=== PATIENT | female | born 1995 | race Caucasian/White ===

== ENCOUNTER → 2019-03-27 11:20 | Outpatient (CLI) | payer BC, SELFPAY ==
[2019-03-27 11:36] LABS: Basophils % 0.1 % (0.1-2.0); Eosinophils % 0.3 % (0.1-12.0); Hematocrit 45.9 % (37.0-47.0); Hemoglobin 14.6 g/dL (12.2-16.2); Lymphocytes # 2.3 K/mm3 (0.7-4.5); Lymphocytes % 31.5 % (10-50); Mean Corpuscular HGB Conc 31.7 g/dL (31.8-35.4); Mean Corpuscular Hemoglobin 29.8 pg (27.0-31.2); Mean Platelet Volume 11.2 fl (7.4-10.4); Monocytes # 0.2 K/mm3 (0.1-1.0); Monocytes % 3.1 % (1.7-9.3); Neutrophils # 4.7 K/mm3 (1.8-7.8); Platelet Count 131 K/mm3 (142-424); Red Blood Count 4.88 M/mm3 (4.20-5.40); Red Cell Distribution Width 13.4 % (11.5-17.5); White Blood Count 7.3 K/mm3 (4.8-10.8)
[2019-03-27 14:24] LABS: Alanine Aminotransferase 36 U/L (12-78); Albumin/Globulin Ratio 1.4 (1.1-1.8); Alkaline Phosphatase 87 U/L (46-116); Aspartate Amino Transferase 18 U/L (15-37); Bilirubin,Total 0.5 mg/dL (0.2-1.0); Blood Urea Nitrogen 12 mg/dL (7-18); Calcium 8.9 mg/dL (8.5-10.1); Carbon Dioxide 25 mmol/L (21.0-32.0); Chloride 107 mmol/L (98-107); Creatinine,Serum 0.79 mg/dL (0.55-1.02); Estimated Glomerular Filt Rate 89 ml/min (>60); Free Thyroxine Index 2.7 ug/dL (5.93-13.13); GFR (African American) 107 ML/MIN (>60); Globulin 2.9 gm/dl (1.3-3.2); Glucose 95 mg/dL (74-106); Sodium 142 mmol/L (136-145); T4 (Thyroxine) 8.3 ug/dl (4.7-13.3); Thyroid Stimulating Hormone 1.48 uIU/ml (0.358-3.740); Total Protein,Serum 6.9 gm/dL (6.4-8.2); Triiodothryronine (T3) Uptake 33 % (31-39)
[2019-03-28 07:06] LABS: DHEA-Sulfate 282.4 ug/dL (84.8-378.0)
[2019-03-28 17:10] LABS: FSH 5.4 mIU/mL (.); LH 11.3 mIU/mL (.); Triiodothyronine (T3) Free 2.7 pg/mL (2.0-4.4)
[2019-03-31 13:53] LABS: Testosterone,Free 4.4 pg/mL (0.0-4.2)
== END ==
PROVIDERS: Visit Provider Nurse Practitioner Obstetrics & Gynecology
DX: E28.2 Polycystic ovarian syndrome (principal); R53.82 Chronic fatigue, unspecified; Z01.419 Encounter for gynecological examination (general) (routine) without abnormal findings
CPT/HCPCS: 36415; 80053; 82626; 83001; 83002; 84402; 84436; 84443; 84479; 84481; 85025

== ENCOUNTER → 2019-04-26 12:47 | Outpatient (CLI) | payer BC, SELFPAY ==
--- NOTE | 2019-04-26 12:58 | US_ITS ---
US transvaginal HISTORY: ITS.REASON: US T/V- Polycystic Ovaries ORDERING PHYSICIAN: Alcon Edwards MD PATIENT AGE: 24 years Comparison: None FINDINGS: The uterus is 7 x 3 x 4 cm with a combined endometrial thickness of 5 mm. There is an intrauterine device present within the endometrial canal. The right ovary is 3.7 x 1.9 x 2.7 cm with a volume of 9.8 mL's. There are small ovarian follicles present. The left ovary is 4 x 3 x 2.9 cm with a volume of 19 mL's. There are at least 9 small follicles of left ovary noted. No cul-de-sac fluid. No dominant ovarian mass. IMPRESSION: 1. IUD in proper position. 2. Left ovary has a polycystic appearance.
== END ==
PROVIDERS: PCP Internal Medicine; Visit Provider Nurse Practitioner Obstetrics & Gynecology
DX: E28.2 Polycystic ovarian syndrome (principal)
CPT/HCPCS: 76830

== ENCOUNTER → 2020-04-14 09:50 | Outpatient (CLI) | payer OTHER, SELFPAY ==
[2020-04-14 10:28] LABS: Basophils % 0.4 % (0.1-2.0); Eosinophils % 0.2 % (0.1-12.0); Hematocrit 44.3 % (37.0-47.0); Hemoglobin 15.6 g/dL (12.2-16.2); Lymphocytes # 2.4 K/mm3 (0.7-4.5); Lymphocytes % 31.4 % (10-50); Mean Corpuscular HGB Conc 35.2 g/dL (31.8-35.4); Mean Corpuscular Hemoglobin 32.3 pg (27.0-31.2); Mean Platelet Volume 10.6 fl (7.4-10.4); Monocytes # 0.2 K/mm3 (0.1-1.0); Monocytes % 2.7 % (1.7-9.3); Neutrophils # 5.1 K/mm3 (1.8-7.8); Neutrophils % 65.3 % (37.0-80.0); Platelet Count 161 K/mm3 (142-424); Red Blood Count 4.81 M/mm3 (4.20-5.40); Red Cell Distribution Width 13.3 % (11.5-17.5); White Blood Count 7.8 K/mm3 (4.8-10.8)
[2020-04-14 11:00] LABS: Blood Urea Nitrogen 11 mg/dl (7-17); Calcium 9.9 mg/dl (8.4-10.2); Carbon Dioxide 21 mmol/L (22.0-30.0); Chloride 105 mmol/L (98-107); Estimated Glomerular Filt Rate 87 ml/min (>60); GFR (African American) 105 ML/MIN (>60); Glucose 110 mg/dl (74-100); Sodium 139 mmol/L (136-145)
[2020-04-14 11:35] LABS: HCG Qualitative, Serum Negative (Negative)
[2020-04-14 14:29] LABS: Coronavirus 19 IgG Antibody Negative (Negative); Coronavirus 19 IgM Antibody Negative (Negative)
== END ==
PROVIDERS: Visit Provider Nurse Practitioner Obstetrics & Gynecology
DX: Z01.818 Encounter for other preprocedural examination (principal)
CPT/HCPCS: 36415; 80048; 84703; 85025; 86328

== ENCOUNTER 2020-04-17 06:02 | Day surgery (SDC) | payer OTHER, SELFPAY ==
[2020-04-13 13:19] VITALS: BMI 39.8
[2020-04-17] VITALS (11 sets, daily range): BP systolic 119–158; BP diastolic 58–85; PULSE 86–120; RESP 16–18; TEMP 36.1–36.6; O2SAT 99–100
--- NOTE | 2020-04-17 06:57 | P.PN_ITS ---
[facility] Anesthesia Checklist - Structural Data Admitted From: Home Planned Operative Procedure/s: labioplasty Consent for Planned Operative Procedure(s) Verified: Yes - Additional verifications Anesthesia Reactions: No Hx Blood Transfusions: No Blood Transfusion Reaction: No - Airway Assessment C-Spine Mobility Assessed: Yes TMJ Mobility Assessed: Yes Dentition: Good Dentition - Neurological Assessment Level of Consciousness: Awake, Alert, Appropriate - Anesthesia Plan Anesthesia Risk discussed: Yes Anesthesia Plan: Verified Anesthesia Type: General [facility] History I have reviewed the patient's past medical history: Yes Medical History: Reports:: Anxiety, Depression Denies:: Cancer, Diabetes Mellitus Type 1, Diabetes Mellitus Type 2, Hyperlipidemia, Hypertension, Internal Pacemaker, Migraine, MRSA, Seizures *Have you ever received a pneumonia vaccine?: No *Have you received a flu vaccine this season?: No Other Medical History: Reports: Hypothyroidism, Other. Denies: Blood Transfusion Reaction Anesthesia experience/problems:: none Laterality Cases: Bilateral: Tonsillectomy Other Surgeries: Yes: No Previous Surgery, Other. No: Pacemaker Amputation: No Fractures: No - *Social History Last grade of school completed: Advanced degree Smoking Status: Never smoker Alcohol Intake: current Alcohol Intake Frequency:: a few times a month Substance Use Type: denies use *Occupational Status:: student Housing: house Household Members: family *Travel in the last 8 weeks: None - Psychiatric History Pschychiatric History:: Reports:: Anxiety, Depression Family Hx:: Coronary Artery Disease, Asthma, Diabetes, Cancer
--- NOTE | 2020-04-17 08:10 | P.OP_ITS ---
Date of procedure: 04/17/20 Pre-op Diagnosis:: Labial hypertrophy Post-op Diagnosis:: Labial hypertrophy Procedure performed:: Left labioplasty Surgeon:: Alcon Edwards MD FINANCIAL ASSISTANT:: Vincenzo Lawrence Anesthesia: GETA, LMA Estimated blood loss (mL): 100 Clinical Note:: She is a 25-year-old 0 para 0 lady who complains of hypertrophy of the left labia with pain with walking as well as intercourse. After having discussed the risks and benefits she elected to have a left labioplasty Operative findings:: She had hypertrophy of the left labia. The right labia appeared normal. As result of that we elected to leave the right labia alone. Operative note:: She was taken the operating room where LMA anesthesia was found to be adequate. She was prepped and draped in normal sterile fashion in the lithotomy position. I grasped the left labia and using Metzenbaum scissors I remove the redundant ti ssue. I then cauterized the base of the incision and closed the incision using interrupted 3-0 Vicryl Rapide suture. I then injected 20 cc of 0.25% ropivacaine subcutaneously. I then applied lidocaine ointment to the incision. A Ray-Rolly was then used to hold this in place. She tolerated procedure well and was taken to recovery room in excellent condition. All sponge, instrument and needle counts were correct. The estimated blood loss was less than 100 cc. Condition: stable Disposition: PACU Complications:: None
--- NOTE | 2020-04-17 08:24 | HMH.ANESI ---
[facility] Anesthesia Record Part I Intake, IV Amount: 700 Estimated blood loss (mL): 100 Urine output (mL): 25 Blood Pressure: 146/69 SaO2: 99 Pulse Rate: 120 Respiratory Rate: 16 Temperature: 97.7 F Patient is:: Drowsy, Stable Stable to PACU at:: 08:20
--- NOTE | 2020-04-17 10:17 | P.PN_ITS ---
[facility] Anesthesia Record Part II Discharge Time: 08:50 Destination: Surgical Day Care (OP Surgery) PACU nurse assessment reviewed?: Yes Patient Condition:: Good Anesthesia Complications:: None Swallowing reflex intact?: Yes Cyanosis?: No Blood Pressure: 132/79 Pulse Rate: 94 Temperature: 97.9 F Mental Status: Alert & Oriented Pain level:: 0 Nausea and/or vomitting:: None Intake, IV Amount: 0
== END 2020-04-17 09:25 | disposition home or self-care (01) ==
LOC: OR 06:04
PROVIDERS: PCP Internal Medicine; Visit Provider Nurse Practitioner Obstetrics & Gynecology
PROC: (CPT 56620; principal; 2020-04-17 07:30)
DX: N90.60 Unspecified hypertrophy of vulva (principal); R10.2 Pelvic and perineal pain; M19.90 Unspecified osteoarthritis, unspecified site; F41.9 Anxiety disorder, unspecified; F32.9 Major depressive disorder, single episode, unspecified; E03.9 Hypothyroidism, unspecified; Z79.899 Other long term (current) drug therapy; Z83.3 Family history of diabetes mellitus; Z82.49 Family history of ischemic heart disease and other diseases of the circulatory system; Z82.5 Family history of asthma and other chronic lower respiratory diseases; Z80.9 Family history of malignant neoplasm, unspecified
CPT/HCPCS: 56620; 96374; J2405

== ENCOUNTER → 2021-01-29 11:26 | Outpatient (CLI) | payer OTHER, SELFPAY ==
[2021-01-29 12:03] LABS: Basophils % 0.3 % (0.1-2.0); Eosinophils % 0.2 % (0.1-12.0); Hematocrit 44.7 % (37.0-47.0); Hemoglobin 14.8 g/dL (12.2-16.2); Lymphocytes # 2.7 K/mm3 (0.7-4.5); Lymphocytes % 40.8 % (10-50); Mean Corpuscular Hemoglobin 30.4 pg (27.0-31.2); Mean Corpuscular Volume 92.1 fl (81-99); Monocytes # 0.2 K/mm3 (0.1-1.0); Monocytes % 3.3 % (1.7-9.3); Neutrophils # 3.6 K/mm3 (1.8-7.8); Neutrophils % 55.3 % (37.0-80.0); Platelet Count 138 K/mm3 (142-424); Red Blood Count 4.85 M/mm3 (4.20-5.40); Red Cell Distribution Width 13.5 % (11.5-17.5); White Blood Count 6.5 K/mm3 (4.8-10.8)
[2021-01-29 12:46] LABS: Chloride 107 mmol/L (98-107); Potassium 4.3 mmoL/L (3.5-5.1); Sodium 138 mmol/L (136-145)
[2021-01-29 12:48] LABS: Blood Urea Nitrogen 8 mg/dl (7-17); Estimated Glomerular Filt Rate 101 ml/min (>60); GFR (African American) 122 ML/MIN (>60)
[2021-01-29 12:49] LABS: Alanine Aminotransferase 44 U/L (12-78); Albumin Level 4.5 g/dl (3.5-5.0); Alkaline Phosphatase 85 U/L (38-126); Anion Gap 10.3 mEq/L (5-15); Aspartate Amino Transferase 34 U/L (14-36); Bilirubin,Total 0.7 mg/dl (0.2-1.3); Calcium 9.4 mg/dl (8.4-10.2); Carbon Dioxide 25 mmol/L (22.0-30.0); Cholesterol 237 mg/dl (140-200); Globulin 2.3 g/dL (1.3-3.2); Glucose 96 mg/dl (74-100); Total Protein,Serum 6.8 g/dl (6.3-8.2); Triglycerides 180 mg/dl (30-150); VLDL Cholesterol 36 mg/dL (0-40)
[2021-01-29 12:50] LABS: HDL Cholesterol 47 mg/dl (40-60)
[2021-01-29 13:01] LABS: Direct LDL Cholesterol 154.08 mg/dL (100-129)
[2021-01-29 13:20] LABS: Thyroid Stimulating Hormone 1.85 uIU/mL (0.465-4.68)
== END ==
PROVIDERS: Visit Provider Internal Medicine
DX: E03.9 Hypothyroidism, unspecified (principal); E78.5 Hyperlipidemia, unspecified; F41.9 Anxiety disorder, unspecified
CPT/HCPCS: 36415; 80053; 80061; 84443; 85025

== ENCOUNTER → 2021-08-15 12:30 | Outpatient (CLI) | payer BC, OTHER, SELFPAY ==
[2021-08-15 13:28] LABS: Chloride 107 mmol/L (98-107); Potassium 4.6 mmoL/L (3.5-5.1); Sodium 142 mmol/L (136-145)
[2021-08-15 13:31] LABS: Alanine Aminotransferase 19 U/L (12-78); Albumin Level 4.6 g/dl (3.5-5.0); Albumin/Globulin Ratio 1.9 (1.1-1.8); Alkaline Phosphatase 84 U/L (38-126); Anion Gap 13.6 mEq/L (5-15); Aspartate Amino Transferase 27 U/L (14-36); Bilirubin,Total 0.5 mg/dl (0.2-1.3); Blood Urea Nitrogen 13 mg/dl (7-17); Calcium 9.8 mg/dl (8.4-10.2); Carbon Dioxide 26 mmol/L (22.0-30.0); Cholesterol 243 mg/dl (140-200); Estimated Glomerular Filt Rate 86 ml/min (>60); GFR (African American) 104 ML/MIN (>60); Globulin 2.4 g/dL (1.3-3.2); Glucose 87 mg/dl (74-100); Triglycerides 135 mg/dl (30-150); VLDL Cholesterol 27 mg/dL (0-40)
[2021-08-15 13:32] LABS: Chol/HDL Ratio 6.2 (1-3.5); HDL Cholesterol 39 mg/dl (40-60)
[2021-08-15 13:42] LABS: Direct LDL Cholesterol 179.22 mg/dL (100-129)
[2021-08-15 15:44] LABS: Thyroid Stimulating Hormone 1.26 uIU/mL (0.465-4.68)
== END ==
PROVIDERS: Visit Provider Internal Medicine
DX: E03.9 Hypothyroidism, unspecified (principal); E78.5 Hyperlipidemia, unspecified; F33.0 Major depressive disorder, recurrent, mild; F41.9 Anxiety disorder, unspecified
CPT/HCPCS: 80053; 80061; 84443

== ENCOUNTER 2021-12-10 17:23 | Emergency (ER) | payer BC, SELFPAY ==
[2021-12-10 18:08] VITALS: BP 155/95; PULSE 117; RESP 17; TEMP 37.5; O2SAT 100; BMI 42.4
[2021-12-10 18:09] LABS: UTC Strep Screen (Rapid) Negative (Negative)
--- NOTE | 2021-12-10 18:24 | HMH.EDUTC ---
[facility] [place] Clinical Impression: Acute bronchitis Qualifiers: Bronchitis organism: unspecified organism Qualified Code(s): J20.9 - Acute bronchitis, unspecified Disposition: Home, Self-Care Condition on Discharge: Good Instructions: Acute Bronchitis, DI for Acute Bronchitis Additional Instructions: Drink plenty of fluids. Take tylenol or ibuprofen for pain or fever. Take the medications as directed. Follow up with your regular doctor. GO TO THE ER FOR ANY WORSENING SYMPTOMS Prescriptions: Benzonatate [Benzonatate 100mg cap] 100 mg PO TIDP PRN #30 cap PRN Reason: Cough [facility] Status[id number] methylPREDNISolone [Medrol] 4 mg PO DIRECTED 6 Days #21 packet Transmission Status: [id number] guaiFENesin [Mucinex 600mg tablet] 1 - 2 tab PO BIDP PRN #30 tab PRN Reason: Congestion Transmission Status: [email or web address] Azithromycin [Z-Berlin 250mg Tab*] 250 mg PO UD DOSE PK #6 tab Transmission Status: Received by [facility] Referrals: Fito Neal [Primary Care Provider] - Forms: Work/School Release Time of Disposition: 18:52 Medical Decision Making - Medical Records Medical records reviewed: No: I reviewed the patient's medical records. - Jonn Inquiry Pt receiving controlled substance: No Vital Signs: 12/10/21 18:08 12/10/21 19:19 Temperature 99.5 F 98.9 F Temperature Source Oral Oral Pulse Rate 91 H Pulse Rate [Left Radial] 117 H Respiratory Rate 17 16 Blood Pressure 142/74 H Blood Pressure [Right Arm] 155/95 H Blood Pressure Mean [Right Arm] 115 02 Sat by Pulse Oximetry 100 Oxygen Delivery Method Room Air Room Air - Lab Data Lab results reviewed: Yes: I reviewed the patient's lab results. Lab Results 12/10/21 18:03: Strep Scn [facility] Negative 12/10/21 18:27: Influenza Type A Ag Negative, Influenza Type B Ag Negative Orders (Tests/Meds): ORDERS Category Date Time Status Strep Screen Confirmation Stat Micro 12/10/21 18:03 Received Medical Decision Narrative: She refused a covid-19 test. [facility] [place] - General Stated complaint: ankur,runny nose,sore throat,cough Time Seen by Provider: 12/10/21 18:24 Mode of Arrival: Ambulatory Source of Information: Patient Limitations: No Limitations Description of Symptoms (Recalled from Triage Doc. by RN): [facility] c/o sore throat, cough, congestion and nasal drainage x1 week HEENT Symptoms (Recalled from RN notes): Yes Resp Symptoms (Recalled from RN notes): Yes Skin Symptoms (Recalled from RN notes): No MS Symptoms (Recalled from RN notes): No Functional Status (Recalled from RN notes): na - History of Present Illness Provider Complaint: She states that for the past 10 days she has had a productive cough with yellowish sputum. She denies any fever or chills. 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 - Related Data Home Medications Medication Instructions Recorded Confirmed levothyroxine 50 mcg tablet 50 mcg PO DAILY 90 Days #90 04/13/18 05/01/20 venlafaxine 150 mg 150 mg PO DAILY 90 Days #90 04/13/18 05/01/20 capsule,extended release 24 hr levonorgestrel 20 mcg/24 hours (7 20 mcg INTRAUTERI DAILY 05/11/18 05/01/20 yrs) 52 mg intrauterine device spironolactone 100 mg tablet 100 mg PO DAILY 11/08/19 05/01/20 Previous Rx's Medication Instructions Recorded Oxycodone HCl/Acetaminophen 1 tab PO Q4-6H PRN #20 tab 04/17/20 [Percocet 5/325mg tablet] phentermine 37.5 mg tablet 37.5 mg PO DAILY #30 tab 05/01/20 Azithromycin [Z-Berlin 250mg Tab*] 250 mg PO UD DOSE PK #6 tab 12/10/21 Benzonatate [Benzonatate 100mg 100 mg PO TIDP PRN #30 cap 12/10/21 cap] guaiFENesin [Mucinex 600mg tablet] 1 - 2 tab PO BIDP PRN #30 tab 12/10/21 methylPREDNISolone [Medrol] 4 mg PO DIRECTED 6 Days #21 12/10/21 packet Allergies Allergy/AdvReac Type Severity Reaction Status Date / Time N
[2021-12-10 18:48] LABS: UTC Influenza A Antigen Negative (Negative); UTC Influenza B Antigen Negative (Negative)
[2021-12-10 19:19] VITALS: BP 142/74; PULSE 91; RESP 16; TEMP 37.2; O2SAT 100
== END 2021-12-10 19:20 | disposition home or self-care (01) ==
PROVIDERS: Emergency Provider Nurse Practitioner Family; PCP Internal Medicine
DX: J20.9 Acute bronchitis, unspecified (principal); J02.9 Acute pharyngitis, unspecified; F41.8 Other specified anxiety disorders; E03.9 Hypothyroidism, unspecified; Z79.899 Other long term (current) drug therapy
CPT/HCPCS: 87804; 87880; 99213; G0463

== ENCOUNTER → 2022-02-12 10:25 | Outpatient (CLI) | payer BC, SELFPAY ==
[2022-02-12 12:22] LABS: Thyroid Stimulating Hormone 1.02 uIU/mL (0.465-4.68)
== END ==
PROVIDERS: Visit Provider Internal Medicine
DX: E03.9 Hypothyroidism, unspecified (principal)
CPT/HCPCS: 36415; 84443

== ENCOUNTER 2023-02-08 12:08 | Emergency (ER) | payer BC, SELFPAY ==
[2023-02-08 12:31] VITALS: BP 166/97; PULSE 105; RESP 18; TEMP 37; O2SAT 100; BMI 48.6
[2023-02-08 12:40] LABS: UTC Strep Screen (Rapid) Negative (Negative)
--- NOTE | 2023-02-08 12:47 | EXP.UTC ---
Discharge Plan Disposition Patient Disposition: Home, Self-Care Condition: Good Prescriptions Prescriptions: New amoxicillin 875 mg tablet 875 mg PO Q12H 10 Days Qty: 20 0RF fexofenadine-pseudoephedrine [Wilma-D 24 Hour] 180-240 mg tablet extended release 24 hr 1 tab PO DAILY Qty: 30 0RF No Action levothyroxine 50 mcg tablet 50 mcg PO DAILY 90 Days Qty: 90 venlafaxine 150 mg capsule,extended release 24hr 150 mg PO DAILY 90 Days Qty: 90 Referrals Follow up/Referrals: Fito Neal MD [Primary Care Provider] - See instructions Clinical Impressions Clinical Impression: Acute suppur right otitis media w/o spontan rupture tympanic membrane Qualifiers: Recurrence: not specified as recurrent Qualified Code(s): H66.001 - Acute suppurative otitis media without spontaneous rupture of ear drum, right ear Acute maxillary sinusitis, unspecified Qualifiers: Recurrence: not specified as recurrent Qualified Code(s): J01.00 - Acute maxillary sinusitis, unspecified Instructions Patient Instructions: DI for Sinusitis, Sinus Headache Discharge ED Provider: Alayna Mitchell [facility] General Stated complaint: Cough,Congestion,sore throat Mode of Arrival: Ambulatory Source of Information: Patient Limitations: No Limitations Time Seen by Provider: 02/08/23 12:40 Description of Symptoms (Recalled from Triage Doc. by RN): pt states she has had sinus pressure, runny nose, sore throat, and headache since HEENT Symptoms (Recalled from RN notes): Yes Resp Symptoms (Recalled from RN notes): Yes Skin Symptoms (Recalled from RN notes): No MS Symptoms (Recalled from RN notes): No Functional Status (Recalled from RN notes): wnl History of Present Illness Provider Complaint: Pt states that she started having sinus congestion/drainage that is yellow-green, sore throat, bilateral ear pain, and facial pressure since . She states that she has taken OTC DayQuil for her symptoms, but this has not helped. Related Data Home Medications Medication Instructions Recorded Confirmed levothyroxine 50 mcg tablet 50 mcg PO DAILY hypothyroidism 90 04/13/18 04/19/22 days ##90 venlafaxine 150 mg 150 mg PO DAILY Anxiety 90 days 04/13/18 04/19/22 capsule,extended release 24 hr ##90 Previous Rx's Medication Instructions Recorded amoxicillin 875 mg tablet 875 mg PO Q12H 10 days #20 tabs 02/08/23 fexofenadine-pseudoephedrine ER 1 tab PO DAILY #30 tabs 02/08/23 180 mg-240 mg tablet,ext.release 24 hr (Wilma-D 24 Hour) Allergies Allergy/AdvReac Type Severity Reaction Status Date / Time No Known Allergies Allergy Verified 02/08/23 12:34 Worker's Comp Is this a Worker's Comp case?: No Is this an [facility] Worker's Comp?: No Is this a [facility] Worker's Comp?: No [facility] Disclaimer: The information contained in this section may have been updated after the patient was seen, as this information can be updated by other users. Social History Smoking Status: Never smoker alcohol intake: current substance use type: denies use current occupational status: student Travel in the last 8 weeks: None household members: family housing: house current occupational exposures/hazards: No caffeine: Yes ROS Obtained: Yes All systems reviewed & no additional complaints except as documented Constitutional Constitutional: Reports system reviewed and no additional complaints, except as documented, Reports fever(s), Reports headache(s) and Reports malaise Eyes Eyes: Reports system reviewed and no additional complaints, except as documented ENT Ears, Nose, Mouth, and Throat: Reports system reviewed and no additional complaints, except as documented, Reports headache(s), Reports nasal congestion, Reports nasal discharge, Reports odynophagia, Reports sinus pain, Reports sinus pressure and Reports sore throat Cardiovascular Cardiovascular: Reports system reviewed and no additional complaints, excep
[2023-02-08 12:57] VITALS: BP 152/83; PULSE 103; RESP 18; TEMP 37; O2SAT 100
== END 2023-02-08 12:57 | disposition home or self-care (01) ==
PROVIDERS: Emergency Provider Nurse Practitioner Family; PCP Internal Medicine
DX: J01.00 Acute maxillary sinusitis, unspecified (principal); H66.001 Acute suppurative otitis media without spontaneous rupture of ear drum, right ear
CPT/HCPCS: 87880; 99212; 99214; G0463

== ENCOUNTER 2023-05-16 15:40 | Emergency (ER) | payer BC, SELFPAY ==
[2023-05-16 15:40] VITALS: BP 155/91; PULSE 79; RESP 16; TEMP 36.7; O2SAT 100; BMI 48.4
--- NOTE | 2023-05-16 16:10 | EXP.UTC ---
Discharge Plan Disposition Patient Disposition: Home, Self-Care Condition: Good Prescriptions Prescriptions: New amoxicillin [amoxicillin] 875 mg tablet 875 mg PO Q12H Qty: 20 0RF tquntcvwobzjzwg-nqrdsvmxi-SH [Bromfed DM] 2-30-10 mg/5 mL Syrup 5 ml PO Q6H PRN (Reason: Cough) Qty: 240 0RF ciprofloxacin-dexamethasone 0.3-0.1 % Drops,Suspension 2 drp Ear-Right BID 7 Days Qty: 1 0RF No Action levothyroxine 50 mcg tablet 50 mcg PO DAILY 90 Days Qty: 90 venlafaxine 150 mg capsule,extended release 24hr 150 mg PO DAILY 90 Days Qty: 90 amoxicillin 875 mg tablet 875 mg PO Q12H 10 Days Qty: 20 0RF fexofenadine-pseudoephedrine [Wilma-D 24 Hour] 180-240 mg tablet extended release 24 hr 1 tab PO DAILY Qty: 30 0RF Referrals Follow up/Referrals: Fito Neal MD [Primary Care Provider] - See instructions Activity Restrictions/Add. Instructions Additional Instructions/Restrictions: Drink plenty of fluids. Take tylenol or ibuprofen for pain or fever. Take the medications as directed. Follow up with your regular doctor. GO TO THE ER FOR ANY WORSENING SYMPTOMS Make sure you follow up with your primary care physician to have your ear rechecked in a few days to make sure it is healing,. Clinical Impressions Clinical Impression: Otitis media, Perforated eardrum Stand Alone Forms Stand Alone Forms: Work/School Release Instructions Patient Instructions: How to Instill Ear Drops, Middle Ear Infection Discharge ED Provider: Martin Hoyt [facility] General Stated complaint: right ear pain Time Seen by Provider: 05/16/23 16:09 History of Present Illness Provider Complaint: She states that she has had bilateral ear pain for the past 3 days. She began having a tannish discharge from her right ear yesterday. Related Data Home Medications Medication Instructions Recorded Confirmed levothyroxine 50 mcg tablet 50 mcg PO DAILY hypothyroidism 90 04/13/18 04/19/22 days ##90 venlafaxine 150 mg 150 mg PO DAILY Anxiety 90 days 04/13/18 04/19/22 capsule,extended release 24 hr ##90 Previous Rx's Medication Instructions Recorded amoxicillin 875 mg tablet 875 mg PO Q12H 10 days #20 tabs 02/08/23 fexofenadine-pseudoephedrine ER 1 tab PO DAILY #30 tabs 02/08/23 180 mg-240 mg tablet,ext.release 24 hr (Wilma-D 24 Hour) amoxicillin 875 mg tablet 875 mg PO Q12H #20 tabs 05/16/23 scttshqaskrtidl-mgfcrjlckmpgakf-NL 5 ml PO Q6H PRN Cough #240 mL 05/16/23 2 mg-30 mg-10 mg/5 mL oral syrup (Bromfed DM) ciprofloxacin 0.3 %-dexamethasone 2 drp Ear-Right BID 7 days #1 ea 05/16/23 0.1 % ear drops,suspension Allergies Allergy/AdvReac Type Severity Reaction Status Date / Time No Known Allergies Allergy Verified 02/08/23 12:34 [facility] Disclaimer: The information contained in this section may have been updated after the patient was seen, as this information can be updated by other users. Social History Smoking Status: Never smoker alcohol intake: current substance use type: denies use current occupational status: student Travel in the last 8 weeks: None household members: family housing: house current occupational exposures/hazards: No caffeine: Yes ROS Obtained: Yes All systems reviewed & no additional complaints except as documented Constitutional Constitutional: Denies chills, Reports fever(s) and Reports poor appetite Eyes Eyes: Denies eye discharge ENT Ears, Nose, Mouth, and Throat: Denies ear discharge, Reports otalgia, Denies hearing loss, Denies sinus pain and Reports sore throat Cardiovascular Cardiovascular: Denies chest pain and Denies dyspnea Respiratory Respiratory: Denies chest congestion, Reports cough and Denies dyspnea Gastrointestinal Gastrointestingal: Denies abdominal pain, diarrhea, nausea or vomiting Musculoskeletal Musculoskeletal: Denies arthralgias Integumentary/Breasts Skin/Breast: Denies rash Physica
[2023-05-16 16:35] VITALS: BP 155/91; PULSE 79; RESP 16; TEMP 36.7; O2SAT 100
== END 2023-05-16 16:36 | disposition home or self-care (01) ==
PROVIDERS: Emergency Provider Nurse Practitioner Family; PCP Internal Medicine
DX: H66.93 Otitis media, unspecified, bilateral (principal); H72.91 Unspecified perforation of tympanic membrane, right ear
CPT/HCPCS: 99212; 99214; G0463

== ENCOUNTER → 2023-09-09 10:37 | Outpatient (CLI) | payer BC, SELFPAY ==
[2023-09-09 12:15] LABS: Chloride 105 mmol/L (98-107); Sodium 139 mmol/L (136-145)
[2023-09-09 12:16] LABS: Potassium 4.6 mmoL/L (3.5-5.1)
[2023-09-09 12:18] LABS: Alanine Aminotransferase 74 U/L (12-78); Albumin Level 4.7 g/dl (3.5-5.0); Alkaline Phosphatase 91 U/L (38-126); Anion Gap 12.6 mEq/L (5-15); Aspartate Amino Transferase 53 U/L (14-36); Bilirubin,Total 0.6 mg/dl (0.2-1.3); Blood Urea Nitrogen 11 mg/dl (7-17); Carbon Dioxide 26 mmol/L (22.0-30.0); Cholesterol 245 mg/dl (140-200); Estimated Glomerular Filt Rate 99 ml/min (>60); GFR (African American) 120 ML/MIN (>60); Globulin 2.4 g/dL (1.3-3.2); Total Protein,Serum 7.1 g/dl (6.3-8.2); Triglycerides 171 mg/dl (30-150); VLDL Cholesterol 34 mg/dL (0-40)
[2023-09-09 12:19] LABS: Calcium 9.1 mg/dl (8.4-10.2); Chol/HDL Ratio 5.1 (1-3.5); Glucose 90 mg/dl (74-100); HDL Cholesterol 48 mg/dl (40-60)
[2023-09-09 12:38] LABS: Direct LDL Cholesterol 159.56 mg/dL (100-129)
[2023-09-09 12:50] LABS: Thyroid Stimulating Hormone 0.98 uIU/mL (0.465-4.68)
== END ==
PROVIDERS: PCP Internal Medicine; Visit Provider Internal Medicine
DX: E03.9 Hypothyroidism, unspecified (principal); E78.5 Hyperlipidemia, unspecified; F33.0 Major depressive disorder, recurrent, mild; F41.9 Anxiety disorder, unspecified; G47.33 Obstructive sleep apnea (adult) (pediatric); K21.9 Gastro-esophageal reflux disease without esophagitis
CPT/HCPCS: 36415; 80053; 80061; 84443

== ENCOUNTER 2024-01-27 15:45 | Emergency (ER) | payer BC, SELFPAY ==
[2024-01-27 16:00] VITALS: BP 127/67; PULSE 78; RESP 18; TEMP 37.1; O2SAT 99; BMI 43.2
--- NOTE | 2024-01-27 16:10 | EXP.UTC ---
Discharge Plan Disposition Patient Disposition: Home, Self-Care Condition: Good Prescriptions Prescriptions: New amoxicillin 875 mg tablet 875 mg PO Q12H Qty: 20 0RF No Action levothyroxine 50 mcg tablet 50 mcg PO DAILY 90 Days Qty: 90 venlafaxine 150 mg capsule,extended release 24hr 150 mg PO DAILY 90 Days Qty: 90 Zepbound 2.5 mg/0.5 mL pen injector See Rx Instructions .ROUTE .COMPLEX Patient Comments: INJECT 1 SYRINGE SUBCUTANEOUSLY ONCE A WEEK Rx Instructions: INJECT 1 SYRINGE SUBCUTANEOUSLY ONCE A WEEK fexofenadine-pseudoephedrine [Wilma-D 24 Hour] 180-240 mg tablet extended release 24 hr 1 tab PO DAILY Qty: 30 0RF Referrals Follow up/Referrals: Fito Neal MD [Primary Care Provider] - See instructions Activity Restrictions/Add. Instructions Additional Instructions/Restrictions: *Monitor Temp, Over the counter Motrin or Tylenol as directed/as needed Tylenol every 4 hours and Motrin every 6 hours (as long as your family doctor has told you that you can take it) for fever or pain. and straight to ER if unable to lower temp less than 101.0 after medication given Take medication as prescribed *Sleep elevated *Humidifier/Vaporizer Follow up IMMEDIATELY for new or worsening symptoms or no Noticeable improvement over the next 48-72 hours. 911 for difficulty breathing or swallowing Clinical Impressions Clinical Impression: Otitis media Instructions Patient Instructions: Middle Ear Infection Discharge ED Provider: Kaia Corral [facility] HPI General Stated complaint: ear ache Mode of Arrival: Ambulatory Source of Information: Patient Limitations: No Limitations Time Seen by Provider: 01/27/24 16:10 Description of Symptoms (Recalled from Triage Doc. by RN): Pt's symptoms are bilateral ear pain. HEENT Symptoms (Recalled from RN notes): Yes Resp Symptoms (Recalled from RN notes): No Skin Symptoms (Recalled from RN notes): No MS Symptoms (Recalled from RN notes): No Functional Status (Recalled from RN notes): n/a History of Present Illness Provider Complaint: Patient states that she is having bilateral ear pain for several days and worse today States today they was hurting worse so she came in Related Data Home Medications Medication Instructions Recorded Confirmed levothyroxine 50 mcg tablet 50 mcg PO DAILY hypothyroidism 90 07/23/18 05/07/24 days ##90 venlafaxine 150 mg 150 mg PO DAILY Anxiety 90 days 04/13/18 01/27/24 capsule,extended release 24 hr ##90 tirzepatide (weight loss) 2.5 See Rx Instructions .Route .COMPLEX 01/27/24 01/27/24 mg/0.5 mL subcutaneous pen injector (Zepbound) Previous Rx's Medication Instructions Recorded fexofenadine-pseudoephedrine ER 1 tab PO DAILY #30 tabs 02/08/23 180 mg-240 mg tablet,ext.release 24 hr (Wilma-D 24 Hour) amoxicillin 875 mg tablet 875 mg PO Q12H #20 tabs 01/27/24 Allergies Allergy/AdvReac Type Severity Reaction Status Date / Time No Known Allergies Allergy Verified 01/27/24 16:10 Worker's Comp Is this a Worker's Comp case?: No [facility] Disclaimer: The information contained in this section may have been updated after the patient was seen, as this information can be updated by other users. Social History Smoking Status: Never smoker alcohol intake: current alcohol intake frequency: a few times a month substance use type: denies use current occupational status: student Travel in the last 8 weeks: None household members: family housing: house current occupational exposures/hazards: No caffeine: Yes ROS Obtained: Yes All systems reviewed & no additional complaints except as documented and Yes Systems reviewed as appropriate & no additional complaints except as documented Constitutional Constitutional: Reports system reviewed and no additional complaints, except as documented, Reports as per HPI and Reports headache(s) ENT Ears, Nose, Mouth, and Throat: Reports system reviewed and no additional complaints, except as documented, Reports as per HPI, Reports otalgia and Reports headache(s) Cardiovascular Cardiovascular: Reports system reviewed and no additional complaints, except as documented and Reports as per HPI Respiratory Respiratory: Reports system reviewed and no additional complaints, except as documented and Reports as per HPI Gastrointestinal Gastrointestingal: Reports system reviewed and no additional complaints, except as documented and as per HPI Musculoskeletal Musculoskeletal: Reports system reviewed and no additional complaints, except as documented and Reports as per HPI Neurologic Neurologic: Reports headache(s) Physical Exam General General appearance: alert and in no apparent distress ENT ENT exam: Present mucous membranes moist Expanded ENT Exam TM/Canal exam: Left TM: bulging and Right TM: erythema and loss of landmarks Respiratory Respiratory exam: Present normal lung sounds bilaterally; Absent respiratory distress or wheezes Cardiovascular Cardiovascular exam: Present regular rate, normal rhythm and normal heart sounds Neurological Exam Neurological exam: Present alert, oriented X3 and normal gait Medical Decision Making Jonn Inquiry Pt receiving controlled substance: No Jonn was queried for this patient: No Vital Signs: 01/27/24 16:00 Temperature 98.8 F Temperature Source Oral Pulse Rate [Right Radial] 78 Respiratory Rate 18 Blood Pressure [Right Arm] 127/67 Blood Pressure Mean [Right Arm] 87 Blood Pressure Source [Right Arm] Automatic Cuff Blood Pressure Position [Right Arm] Sitting 02 Sat by Pulse Oximetry 99 Oxygen Delivery Method Room Air
[2024-01-27 16:27] VITALS: BP 127/67; PULSE 78; RESP 18; TEMP 37.1; O2SAT 99
== END 2024-01-27 16:27 | disposition home or self-care (01) ==
PROVIDERS: Emergency Provider Nurse Practitioner; PCP Internal Medicine
DX: H66.93 Otitis media, unspecified, bilateral (principal)
CPT/HCPCS: 99212; 99214; G0463

== ENCOUNTER 2025-04-25 14:30 | Outpatient (CLI) | payer BC, SELFPAY ==
[2025-04-25 19:37] LABS: Anion Gap 11.5 mEq/L (5-15); Blood Urea Nitrogen 11 mg/dl (7-17); Calcium 9.6 mg/dl (8.4-10.2); Carbon Dioxide 25 mmol/L (22.0-30.0); Chloride 106 mmol/L (98-107); Creatinine,Serum 0.70 mg/dl (0.52-1.04); Estimated Glomerular Filt Rate 98 ml/min (>60); GFR (African American) 118 ML/MIN (>60); Glucose 66 mg/dl (74-100); Potassium 4.5 mmoL/L (3.5-5.1); Sodium 138 mmol/L (136-145)
[2025-04-25 19:52] LABS: Free T4 (Free Thyroxine) 1.32 ng/dl (0.78-2.19)
[2025-04-25 20:05] LABS: Thyroid Stimulating Hormone 0.76 uIU/mL (0.465-4.68)
--- OUTSIDE RECORDS SUMMARY | 2025-04-26 12:27 | XMS_ITS | Clinical Summary ---
Author Organization Healthcare Address [address] [place] [address] Care Team Providers Care Paperboard Boxes Estimator Name Role Phone Fito Neal MD Primary Care Provider [phone] Social History Tobacco Use Types Packs/Day Years Used Date Smoking Tobacco: Never Alcohol Use Standard Drinks/Week Comments No 0 (1 standard drink = 0.6 oz pur e alcohol) Comments Unknown Sex and Gender Information Value Date Recorded Sex Assigned at Not on file Legal Sex Female 8:04 PM EDT Gender Identity Not on file Sexual Orientation Not on file Last Filed Vital Signs Vital Sign Reading Time Taken Comments Blood Pressure - - Pulse - - Temperature - - Respiratory Rate - - Oxygen Saturation - - Inhaled Oxygen Concentration - - Weight 122 kg (269 lb 8.2 oz) 02/21/2017 10:21 A M EDT Height 170.2 cm (5' 7 ) 02/21/2017 10:21 AM EDT Body Mass Index 42.21 02/21/2017 10:21 AM EDT Plan of Treatment Not on file Care Teams Paperboard Boxes Estimator Relationship Specialty Start Date End Date Fito Neal MD [address] [facility] [address] [place] [address] PCP - General 02/02/21
== END 2025-04-25 23:59 | disposition home or self-care (01) ==
LOC: LAB.DROPOF 04-26 12:25
PROVIDERS: PCP Internal Medicine; Visit Provider Internal Medicine
DX: E03.9 Hypothyroidism, unspecified (principal); E28.2 Polycystic ovarian syndrome; L68.0 Hirsutism
CPT/HCPCS: 80048; 84439; 84443

== ENCOUNTER 2025-05-30 17:00 | Outpatient (CLI) | payer BC, SELFPAY ==
[2025-05-30 18:21] LABS: Chloride 107 mmol/L (98-107); Sodium 140 mmol/L (136-145)
[2025-05-30 18:22] LABS: Potassium 4.5 mmoL/L (3.5-5.1)
[2025-05-30 18:24] LABS: Blood Urea Nitrogen 15 mg/dl (7-17); Creatinine,Serum 0.70 mg/dl (0.52-1.04); Estimated Glomerular Filt Rate 98 ml/min (>60); GFR (African American) 118 ML/MIN (>60)
[2025-05-30 18:25] LABS: Anion Gap 12.5 mEq/L (5-15); Calcium 10.2 mg/dl (8.4-10.2); Carbon Dioxide 25 mmol/L (22.0-30.0); Glucose 83 mg/dl (74-100)
--- OUTSIDE RECORDS SUMMARY | 2025-05-31 10:02 | XMS_ITS | Clinical Summary ---
Author Organization [facility] Address [address] [place] [address] Care Team Providers Care Dimensional Inspector Name Role Phone Fito Neal MD Primary Care Provider [phone] Social History Tobacco Use Types Packs/Day Years [...] of Treatment Not on file Care Teams Dimensional Inspector Relationship Specialty Start Date End Date Fito Neal MD [address] [facility] [address] [place] [address] PCP - General 02/02/21
== END 2025-05-30 23:59 ==
LOC: LAB.DROPOF 05-31 09:59
PROVIDERS: PCP Internal Medicine; Visit Provider Internal Medicine
DX: E28.2 Polycystic ovarian syndrome (principal)
CPT/HCPCS: 36415; 80048